=== PATIENT | male | born 1970 | race Caucasian/White ===

== ENCOUNTER 2022-12-01 06:06 | Emergency (ER) | payer OTHER ==
[2022-12-01 06:40] LABS: HEMATOCRIT 46.6 % (40.1-51.0); HEMOGLOBIN 15.9 gm/dl (13.7-17.5); MEAN CORPUSCULAR HEMOGLOBIN 31.2 pg (25.7-32.2); MEAN CORPUSCULAR HGB CONC 34.1 g/dl (32.2-35.5); MEAN CORPUSCULAR VOLUME 91.6 fl (79.0-92.2); MEAN PLATELET VOLUME 10.4 fl (9.4-12.3); PLATELET COUNT,PLT 230 K/mm3 (163-337); RED BLOOD CELL COUNT 5.09 M/mm3 (4.63-6.08); WHITE BLOOD CELL COUNT,WBC 7.57 K/mm3 (4.23-9.07)
[2022-12-01] MEDS ORDERED: Sodium Chloride 0.9% 1,000 ML IV SCH (06:45)
[2022-12-01 06:48] LABS: INR 0.94; PROTHROMBIN TIME 10.1 SECONDS (9.7-12.0)
[2022-12-01 06:49] LABS: D-DIMER QUANTITATIVE 0.31 mg/L (0.19-0.50)
[2022-12-01 06:50] LABS: PTT,PARTIAL THROMBOPLSTIN TIME 27.1 SECONDS (21.7-31.4)
[2022-12-01] MEDS ORDERED: Iopamidol 612 MG/ML 100 ML Bottle IVPUSH ONE (06:55)
[2022-12-01 06:57] LABS: A/G RATIO 1.2 (1-2); ALBUMIN 3.9 g/dl (3.4-5.0); ALKALINE PHOSPHATASE 75 U/L (46-116); BILIRUBIN TOTAL 0.5 mg/dL (0.2-1.0); BLOOD UREA NITROGEN,BUN 14 mg/dL (7-18); BUN/CREATININE RATIO 12.7 (14-18); CALCIUM 8.4 mg/dL (8.5-10.1); CARBON DIOXIDE,CO2 21 mEq/L (21-32); CHLORIDE,CL 107 mEq/L (98-107); CREATININE 1.1 mg/dL (0.7-1.3); ESTIMATED GFR 80 mL/min (>60); LIPASE 128 U/L (73-393); PROTEIN TOTAL,TP 7.3 g/dl (6.4-8.2); SODIUM,NA 139 mEq/L (136-145); TROPONIN I HIGH SENSITIVITY 7 pg/mL (<=76)
[2022-12-01 07:01] LABS: GLUCOSE RANDOM 135 mg/dL (70-99)
[2022-12-01 07:10] LABS: BAND PERCENT MAN 0 % (0-10); BASOPHILS PERCENT MAN 1 (0.2-1.2); EOSINOPHILS PERCENT MAN 3 % (0.8-7.0); LYMPHOCYTES % ATYPICAL MANUAL 0 %; LYMPHOCYTES PERCENT MAN 28 % (20-40); MONOCYTES PERCENT MAN 6 % (2-10)
[2022-12-01 07:12] LABS: PLATELET COUNT ESTIMATE ADEQUATE
== END 2022-12-01 07:58 | disposition home or self-care (01) ==
LOC: JD.ED 06:06
DX: R10.13 Epigastric pain (principal); E78.9 Disorder of lipoprotein metabolism, unspecified; E66.9 Obesity, unspecified; Z68.33 Body mass index [BMI] 33.0-33.9, adult
CPT/HCPCS: 36415; 74177; 80053; 83690; 83735; 83880; 84484; 85007; 85027; 85379; 85610; 85730; 93005; 99285; J7030; Q9967; 93010; 99284